=== PATIENT | female | born 1985 | race Caucasian/White ===

== ENCOUNTER → 2017-10-10 09:58 | Outpatient (CLI) | payer OTHER, SELFPAY ==
--- NOTE | 2017-10-10 | DI.US.S_ITS ---
PROCEDURE: US OB >= 14 WEEKS FETUS INDICATIONS: ANATOMY OUTSIDE/PRIOR DATING DATA: Last menstrual period (LMP): 05/04/17. LMP-based estimated date of delivery (MAGNOLIA): 02/08/18. First dating scan (date and location): 10/10/17. Estimated date of delivery (MAGNOLIA) from first dating scan: 02/10/18. TECHNIQUE: Real-time scanning was performed of the fetus, with image documentation and biometric measurements. COMPARISON: None. FINDINGS: General: A single living intrauterine gestation is present. Presentation: Breech. Placenta: Placental position is posterior, without previa. Lower placental edge 2 cm or less from internal cervical os qualifies as low lying placenta. Amniotic fluid index: 10.3 cm, normal range is 5-24 cm. heart rate: 144 beats per minute. Maternal cervical canal: 4.7 cm long. Normal lower limit is 2.5 cm. biometrics: Biparietal diameter: 5.3 cm 22 weeks one day Head circumference: 20.8 cm 22 weeks 6 days Abdominal circumference: 18.9 cm 23 weeks 5 days Femur length: 3.9 cm 22 weeks 3 days Estimated gestational age from initial scan: not applicable. Composite gestational age from present scan: 22 weeks 6 days Estimated weight and percentile: 560 g 62nd percentile Measurement variability for biometric dating: +/- 7 days from 14 weeks to 15 weeks 6 days gestation, +/- 10 days from 16 weeks to 21 weeks 6 days gestation, +/- 2 weeks from 22 weeks to 27 weeks 6 days gestation, +/- 3 weeks for 28 weeks gestation or later. weight reference: 4500 g or EFW >90/95% is considered macrosomia or large for gestational age. EFW <10% is small for gestational age. EFW 5% or less is considered intra-uterine growth restriction. Anatomic survey: Neuro: Ventricles are non-dilated at less than 10 mm. Cisterna magna is normal at 3-11 mm. Cerebellum is normal in size and morphology. Nuchal skin fold: Normal at less than 6 mm between 14-21 weeks gestational age. Face: Nose and lips, facial profile are normal. Spine: No evidence for spina bifida. Heart: 4-chambered heart is present, with normal ventricular outflow tracts. Diaphragm: Diaphragm is intact. Stomach: Left-sided stomach is present. Kidneys: No hydronephrosis. Normal is less than 5 mm in 2nd trimester, less than 7 mm in 3rd trimester. Cord: 3-vessel cord has orthotopic insertion. Bladder: Normal in size. Extremities: All 4 extremities identified. IMPRESSION: 1. Single live intrauterine with ultrasound gestational age of 22 weeks 6 days correspond ultrasound MAGNOLIA of 02/07/18. 2. Anatomy is within normal limits. Dictated by: Edwina Beltran M.D. on 10/10/2017 at 17:11 Approved by: Edwina Beltran M.D. on 10/10/2017 at 17:13
== END ==
PROVIDERS: PCP Nurse Practitioner Family; Visit Provider Midwife
DX: Z36.89 Encounter for other specified antenatal screening (principal); Z3A.22 22 weeks gestation of pregnancy
CPT/HCPCS: 76811

== ENCOUNTER → 2017-12-27 12:27 | Outpatient (CLI) | payer OTHER, SELFPAY ==
--- NOTE | 2017-12-27 | DI.US.S_ITS ---
PROCEDURE: US OB LIMITED INDICATIONS: RECHECK POSITION ON PLACENTA OUTSIDE/PRIOR DATING DATA: Last menstrual period (LMP): 05/04/17. LMP-based estimated date of delivery (MAGNOLIA): 02/08/18. First dating scan (date and location): 10/10/17. Estimated date of delivery (MAGNOLIA) from first dating scan: 02/10/18.. TECHNIQUE: Real-time scanning was performed of the fetus, with image documentation. Endovaginal scanning: No COMPARISON: [facility], OB >= 14 WEEKS FETUS, 10/10/2017, 10:15. FINDINGS: A single living intrauterine gestation is present. Presentation: Vertex. Placenta: Placental position is posterior, without previa. Amniotic fluid index: 15.8 cm, normal range is 5-24 cm. heart rate: 125 beats per minute. Maternal cervical canal: 3.7 cm long. Estimated gestational age from initial scan: 34 weeks 0 days. IMPRESSION: Single living IUP redemonstrated and no placenta previa is present with the inferior margin of the placenta roughly 9 cm above the internal cervical os. Dictated by: [facility]aus [facility] Interpreted: Ravinder Magana MD on 12/27/2017 at 14:15 Approved by: Ravinder Magana M.D. on 12/27/2017 at 16:22
== END ==
PROVIDERS: PCP Nurse Practitioner Family; Visit Provider Midwife
DX: O44.03 Complete placenta previa NOS or without hemorrhage, third trimester (principal); Z3A.34 34 weeks gestation of pregnancy
CPT/HCPCS: 76815